=== PATIENT | female | born 1970 | race American Indian/Alaskan Native ===

== ENCOUNTER 2016-11-08 17:40 | Emergency (ER) | payer SELFPAY ==
--- NOTE | 2016-11-08 18:21 | Emergency Department Report ---
Chief Complaint: Headache Stated Complaint: HEADACHE Time Seen by Provider: 11/08/16 18:20 - HPI History of Present Illness: 45 y/o female complain of headache x 3 day s.pt state has not taken htn medication in a year.denies any chest pain or blurry vision.denies any prior treatment. - ROS Review of Systems: per HPI - Exam Vital Signs: Vital Signs 11/08/16 17:50 Temperature 98.2 F Pulse Rate 95 H Respiratory 18 Rate Blood Pressure 192/116 O2 Sat by Pulse 100 Oximetry Physical Exam: GENERAL: The patient is well-developed and well-nourished. Patient is in NAD. HENT: Normocephalic. Atraumatic. Patient has moist mucous membranes. Throat: No erythema, swelling or exudates. Ears:Tympanic membranes pearly kaiser ,intact , and free of exudate and erythema . EYES: Extraocular motions are intact, PERRL NECK: Supple. No meningitic signs are noted. There is no adenopathy noted. CHEST/LUNGS: Clear to auscultation bilaterally. No wheezing, rales or rhonchi noted. There is no respiratory distress noted. HEART/CARDIOVASCULAR: Regular rate and rhythm. Normal S1 S2. No murmurs, rubs , clicks, or gallops. ABDOMEN: Abdomen is soft, nontender.. Bowel sounds normoactive. There is no abdominal distention. Negative rebound tenderness. : Deferred. SKIN: There is no rash. There is no edema. There is no diaphoresis.Normal skin turgor NEURO: The patient is A&Ox3. The patient has no focal neurologic deficits. MUSCULOSKELETAL: There is no tenderness or deformity. There is no limitation range of motion. posture erect.Spine aligned,no deformities. PSYCH: Pt has appropriate mood and affect. MSE screening note: Focused history and physical exam performed. Due to findings the following was ordered: ED Disposition for MSE Condition: Stable
[2016-11-08 19:19] LABS: Hematocrit 30.1 % (30.3-42.9); Hemoglobin 9.2 gm/dl (10.1-14.3); Mean Corpuscular HGB Conc 31 % (30-34); Mean Corpuscular Volume 64 fl (79-97); Platelet Count 434 K/mm3 (140-440); Red Blood Count 4.68 M/mm3 (3.65-5.03); Red Cell Distribution Width 19.2 % (13.2-15.2); White Blood Count 7.8 K/mm3 (4.5-11.0)
[2016-11-08 19:20] LABS: Basophils % (Auto) 0.6 % (0.0-1.8); Mean Corpuscular Hemoglobin 20 pg (28-32)
[2016-11-08 19:21] LABS: Eosinophils % (Auto) 2.9 % (0.0-4.3)
[2016-11-08 19:23] LABS: INR 1.06 (0.87-1.13)
[2016-11-08 19:24] LABS: Partial Thromboplastin Time 27.4 Sec. (24.2-36.6)
[2016-11-08 19:32] LABS: Anion Gap 18 mmol/L; Blood Urea Nitrogen 12 mg/dL (7-17); Calcium 8.6 mg/dL (8.4-10.2); Carbon Dioxide 22 mmol/L (22-30); Chloride 101.5 mmol/L (98-107); Glucose 104 mg/dL (65-100); Potassium 4.1 mmol/L (3.6-5.0); Sodium 137 mmol/L (137-145)
[2016-11-08 20:33] LABS: Bilirubin,Urine NEG (Negative); Blood,Urine NEG (Negative); Ketones,Urine NEG (Negative); Leukocyte Esterase,Urine NEG (Negative); Nitrite,Urine NEG (Negative); Protein,Urine <15 mg/dL mg/dL (Negative); Urobilinogen,Urine < 2.0 mg/dL (<2.0); WBC,Urine < 1.0 /HPF (0.0-6.0)
[2016-11-09] MEDS ORDERED: CATAPRES PO ONE (02:33)
[2016-11-09] MEDS ORDERED: TENIVAC IM ONE (03:00)
--- NOTE | 2016-11-09 04:20 | Emergency Department Report ---
ED Headache HPI - General Chief Complaint: Headache Stated Complaint: HEADACHE Time Seen by Provider: 11/09/16 02:12 Source: patient Exam Limitations: no limitations - History of Present Illness Initial Comments: 45 yo Female with a past medical history hypertension presents complaining of intermittent headache for the past 3 days. Patient states she is under a lot of stress. Upon arrival she was noted to have elevated blood pressure. Patient has been noncompliant with her blood pressure medication for approximately one year. Her headache was initially frontal, rated 8/10 intensity without any relieving factors. Patient also complains of upper back and neck pain intermittently as well. She is pain-free at this time. No reports of nausea, vomiting, chest pain, shortness of breath, focal weakness or numbness. Patient also requesting a tetanus shot since she was bitten to 3 days ago by a friend's dog to her left leg below the knee. Animal shots were up to date Allergies/Adverse Reactions: Allergies ibuprofen Adverse Reaction (Verified 11/08/16 17:56) "FATIGUE / TIRED" Home Medications: Ambulatory Orders Lisinopril/Hydrochlorothiazide [Zestoretic 10-12.5 mg] 1 tab PO QDAY #30 tablet 11/09/16 traMADol [Ultram 50 MG tab] 50 mg PO Q6HR PRN #20 tablet 11/09/16 ED Review of Systems ROS: Stated complaint: HEADACHE Other details as noted in HPI Comment: All other systems reviewed and negative Other: Constitutional: No fevers chills or weight loss Eyes: No eye pain visual changes or discharge ENT: No ear pain or throat pain Neck: as per hpi Respiratory: Denies cough wheezing shortness of breath Cardiovascular: Denies chest pain, palpitations, syncopesed thirst GI: Denies abdominal pain, nausea, vomiting, diarrhea, constipation, melena hematochezia : Denies dysuria, urinary frequency, or urgency Musculoskeletal:as per hpi Skin: Denies rash, lesions, erythema Neurologic: Denies headache, numbness, weakness Psychiatric: Denies suicidal ideation, hallucinations Hematological/lymphatic: Denies easy bruising, lymphadenopathy ED Past Medical Hx - Past Medical History Hx Hypertension: Yes - Surgical History Additional Surgical History: - Social History Smoking Status: Never Smoker Substance Use Type: None - Medications Home Medications: Home Medications Medication Instructions Recorded Confirmed Last Taken Type Lisinopril/Hydrochlorothiazide 1 tab PO QDAY #30 tablet 11/09/16 Unknown Rx [Zestoretic 10-12.5 mg] traMADol [Ultram 50 MG tab] 50 mg PO Q6HR PRN #20 tablet 11/09/16 Unknown Rx ED Physical Exam - General Limitations: No Limitations - Other Other exam information: General: No limitations, patient is alert in no acute distress Head exam: Atraumatic, normocephalic Eyes exam: Normal appearance, pupils equal reactive to light, extraocular movements intact ENT: Moist mucous membrane, normal oropharynx Neck exam: Normal inspection, full range of motion, no meningismus nontender Respiratory exam: Clear to auscultation bilateral, no wheezes, rales, crackles Cardiovascular: Normal rate and rhythm, normal heart sounds Abdomen: Soft, nondistended, and nontender, with normal bowel sounds, no rebound, or guarding Extremity: Full range of motion normal inspection no deformity, mild ecchymosis to leg below the knee and area of dog bite. No bite wounds or skin puncture noted Back: Normal Inspection, full range of motion, no tenderness Neurologic: Alert, oriented x3, cranial nerves intact, no motor or sensory deficit Psychiatric: normal affect, normal mood Skin: Warm, dry, intact ED Course Vital Signs 11/08/16 11/09/16 11/09/16 17:50 00:17 02:05 Temperature 98.2 F 98.3 F Pulse Rate 95 H 83 Respiratory 18 20 Rate Blood Pressure 192/116 Blood Pressure 182/107 [Right] O2 Sat by Pulse 100 99 100 Oximetry 11/09/16 11/09/16 11/09/16 02:13 02:54 03:00 Temperature 97.7 F Pulse Rate 79 77 Respiratory 16 Rate Blood Pressure 173/102 171/108 Blood Pressure 184/115 [Right] O2 Sat by Pulse 100 98 Oximetry 11/09/16 03:19 Temperature Pulse Rate Respiratory 16 Rate Blood Pressure Blood Pressure [Right] O2 Sat by Pulse 100 Oximetry - Reevaluation(s) Reevaluation #1: 11/09/16 04:19 Patient was given clonidine 0.1 mg for blood pressure. No pain medicine given since no pain reported. Tetanus was given per patient request and per history of recent dog bite Reevaluation #2: 11/09/16 05:06 BP currently 142/53. Patient remains pain-free. Will be discharged ED Medical Decision Making - Lab Data Result diagrams: 11/08/16 18:36 11/08/16 18:36 Lab Results 11/08/16 11/08/16 11/08/16 Range/Units 18:36 18:36 18:36 WBC 7.8 (4.5-11.0) K/mm3 RBC 4.68 (3.65-5.03) M/mm3 Hgb 9.2 L (10.1-14.3) gm/dl Hct 30.1 L (30.3-42.9) % MCV 64 L (79-97) fl MCH 20 L (28-32) pg MCHC 31 (30-34) % RDW 19.2 H (13.2-15.2) % Plt Count 434 (140-440) K/mm3 Lymph % (Auto) 41.7 H (13.4-35.0) % Carlisle % (Auto) 5.6 (0.0-7.3) % Eos % (Auto) 2.9 (0.0-4.3) % Baso % (Auto) 0.6 (0.0-1.8) % Lymph # 3.2 (1.2-5.4) K/mm3 Carlisle # 0.4 (0.0-0.8) K/mm3 Eos # 0.2 (0.0-0.4) K/mm3 Baso # 0.0 (0.0-0.1) K/mm3 Seg Neutrophils % 49.2 (40.0-70.0) % Seg Neutrophils # 3.8 (1.8-7.7) K/mm3 PT 13.7 (12.2-14.9) Sec. INR 1.06 (0.87-1.13) APTT 27.4 (24.2-36.6) Sec. Sodium 137 (137-145) mmol/L Potassium 4.1 (3.6-5.0) mmol/L Chloride 101.5 (98-107) mmol/L Carbon Dioxide 22 (22-30) mmol/L Anion Gap 18 mmol/L BUN 12 (7-17) mg/dL Creatinine 0.6 L (0.7-1.2) mg/dL Estimated GFR > 60 ml/min BUN/Creatinine Ratio 20.00 % Glucose 104 H (65-100) mg/dL Calcium 8.6 (8.4-10.2) mg/dL HCG, Quant (0-4) mIU/mL Urine Color (Yellow) Urine Turbidity (Clear) Urine pH (5.0-7.0) Ur Specific Cle[place] (1.003-1.030) Urine Protein (Negative) mg/dL Urine Glucose (UA) (Negative) mg/dL Urine Ketones (Negative) mg/dL Urine Blood (Negative) Urine Nitrite (Negative) Urine Bilirubin (Negative) Urine Urobilinogen (<2.0) mg/dL Ur Leukocyte Esterase (Negative) Urine WBC (Auto) (0.0-6.0) /HPF Urine RBC (Auto) (0.0-6.0) /HPF U Epithel Cells (Auto) (0-13.0) /HPF 11/08/16 11/08/16 Range/Units 18:36 20:10 WBC (4.5-11.0) K/mm3 RBC (3.65-5.03) M/mm3 Hgb (10.1-14.3) gm/dl Hct (30.3-42.9) % MCV (79-97) fl MCH (28-32) pg MCHC (30-34) % RDW (13.2-15.2) % Plt Count (140-440) K/mm3 Lymph % (Auto) (13.4-35.0) % Carlisle % (Auto) (0.0-7.3) % Eos % (Auto) (0.0-4.3) % Baso % (Auto) (0.0-1.8) % Lymph # (1.2-5.4) K/mm3 Carlisle # (0.0-0.8) K/mm3 Eos # (0.0-0.4) K/mm3 Baso # (0.0-0.1) K/mm3 Seg Neutrophils % (40.0-70.0) % Seg Neutrophils # (1.8-7.7) K/mm3 PT (12.2-14.9) Sec. INR (0.87-1.13) APTT (24.2-36.6) Sec. Sodium (137-145) mmol/L Potassium (3.6-5.0) mmol/L Chloride (98-107) mmol/L Carbon Dioxide (22-30) mmol/L Anion Gap mmol/L BUN (7-17) mg/dL Creatinine (0.7-1.2) mg/dL Estimated GFR ml/min BUN/Creatinine Ratio % Glucose (65-100) mg/dL Calcium (8.4-10.2) mg/dL HCG, Quant < 2 (0-4) mIU/mL Urine Color Straw (Yellow) Urine Turbidity Clear (Clear) Urine pH 6.0 (5.0-7.0) Ur Specific [place] 1.008 (1.003-1.030) Urine Protein <15 mg/dl (Negative) mg/dL Urine Glucose (UA) Neg (Negative) mg/dL Urine Ketones Neg (Negative) mg/dL Urine Blood Neg (Negative) Urine Nitrite Neg (Negative) Urine Bilirubin Neg (Negative) Urine Urobilinogen < 2.0 (<2.0) mg/dL Ur Leukocyte Esterase Neg (Negative) Urine WBC (Auto) < 1.0 (0.0-6.0) /HPF Urine RBC (Auto) 1.0 (0.0-6.0) /HPF U Epithel Cells (Auto) 1.0 (0-13.0) /HPF - Medical Decision Making Labs are unremarkable. No signs of hypertensive emergency. CT not performed since pain-free at this time. Blood pressure improved with clonidine. Patient is sent home with a refill her last noted BP medication. Outpatient follow-up will be encouraged. - Differential Diagnosis htn headache, stress headache, tension headache, musculoskeletal pain Critical Care Time: No Critical care attestation.: If time is entered above; I have spent that time in minutes in the direct care of this critically ill patient, excluding procedure time. ED Disposition Clinical Impression: Noncompliance with medication regimen, Skin abrasion Headache Qualifiers: Headache type: unspecified Headache chronicity pattern: acute headache Intractability: not intractable Qualified Code(s): R51 - Headache HTN (hypertension) Qualifiers: Hypertension type: essential hypertension Qualified Code(s): I10 - Essential ( primary) hypertension Disposition: DISCHARGED TO HOME OR SELFCARE Is pt being admited?: No Does the pt Need Aspirin: No Condition: Stable Instructions: Hypertension (ED), Acute Headache (ED) Additional Instructions: Follow with the primary care doctor or clinic provided. Medication as prescribed. Return if symptoms worsen. Prescriptions: Lisinopril/Hydrochlorothiazide [Zestoretic 10-12.5 mg] 1 tab PO QDAY #30 tablet traMADol [Ultram 50 MG tab] 50 mg PO Q6HR PRN #20 tablet PRN Reason: Pain Referrals: [facility] [Provider Group] - 3-5 Days JIM JOHN MD [Staff Physician] - 3-5 Days Time of Disposition: 05:07
[2016-11-09 05:24] VITALS: BP 135/89
== END 2016-11-09 05:24 | disposition home or self-care (01) ==
LOC: ED 17:40
DX: S80.812A Abrasion, left lower leg, initial encounter (principal); R51 Headache; I10 Essential (primary) hypertension; Z91.14 Patient's other noncompliance with medication regimen; Z88.6 Allergy status to analgesic agent; W54.0XXA Bitten by dog, initial encounter; Y93.9 Activity, unspecified; Y99.9 Unspecified external cause status; Y92.89 Other specified places as the place of occurrence of the external cause
CPT/HCPCS: 36415; 80048; 81001; 84702; 85025; 85610; 85730; 90471; 90714

== ENCOUNTER 2017-08-27 21:35 | Emergency (ER) | payer BC ==
--- NOTE | 2017-08-28 00:43 | Cat Scan Report ---
FINAL REPORT PROCEDURE: CT HEAD/BRAIN WO CON TECHNIQUE: Computerized tomography of the head was performed without contrast material. HISTORY: headache COMPARISON: No prior studies are available for comparison. FINDINGS: Brain: Brain density appears normal. No evidence of intracranial hemorrhage. No parenchymal hemorrhage, mass lesions or mass effect are seen. No abnormal extraxial fluid collects or masses are seen. Ventricles: Ventricles are normal size and are midline. Bone Windows: No evidence of skull fracture. Paranasal sinuses: Patchy mucosal disease is seen in a few of the ethmoid air cells. Visualized portions of the paranasal sinuses otherwise appear clear. Mastoid air cells: Visualized portions appear clear. IMPRESSION: Negative unenhanced CT scan of the brain. No acute intracranial abnormalities are identified. Mild paranasal sinus disease as described.
[2017-08-28 03:46] VITALS: BP 152/95
--- NOTE | 2017-08-28 06:15 | Emergency Department Report ---
ED Headache HPI - General Chief Complaint: Headache Stated Complaint: HEADACHE Time Seen by Provider: 08/28/17 03:54 Source: patient, family - History of Present Illness Initial Comments: Patient here reports throbbing headache to the front of her head. Patient states that she has no history of migraine headaches. She says she has a history of high blood pressure and stated that she's been under a lot of stress due to family issues and her blood pressure has been high lately. Her blood pressure today was 161/85. She denies any visual disturbances, shortness of breath or chest pain. Denies any dizziness. Pain is 8 out of 10 and throbbing and she said she uses [id number] medication and is not helping. Denies any difficulty speaking, walk-in. Denies any nausea vomiting or fever or chills. Timing/Duration: 1 week, episodic, waxing and waning Quality: severe, achy, throbbing Head Injury Location: frontal Recent Head Trauma: no recent headache/trauma, occasional headaches Modifying Factors: improves with: rest Associated Symptoms: nasal drainage. denies: confusion, fatigue, facial pain, fever/chills, flushing, loss of consciousness, nausea/vomiting, nasal congestion , numbness in legs/feet, rash, seizures, sinus infection, stiff neck, vision changes, weakness Allergies/Adverse Reactions: Allergies ibuprofen Adverse Reaction (Verified 11/08/16 17:56) "FATIGUE / TIRED" Home Medications: Ambulatory Orders Lisinopril/Hydrochlorothiazide [Zestoretic 10-12.5 mg] 1 tab PO QDAY #30 tablet 11/09/16 traMADol [Ultram 50 MG tab] 50 mg PO Q6HR PRN #20 tablet 11/09/16 Acetaminophen/Codeine [Tylenol /Codeine # 3 tab] 1 tab PO Q8H PRN 4 Days #12 tablet 08/28/17 Amoxicillin/K Clav Tab [Augmentin 875 mg] 1 tab PO Q12HR 10 Days #20 tab Cetirizine HCl [ZyrTEC] 10 mg PO QAM 14 Days #14 capsule 08/28/17 Fluticasone [Flonase] 1 spray NS QDAY 14 Days #1 bottle 08/28/17 ED Review of Systems ROS: Stated complaint: HEADACHE Other details as noted in HPI Comment: All other systems reviewed and negative Constitutional: no symptoms reported Eyes: denies: eye pain, eye discharge, vision change ENT: congestion (runny nose). denies: ear pain, throat pain Respiratory: no symptoms reported Cardiovascular: denies: chest pain, palpitations, dyspnea on exertion, edema, syncope, paroxysmal nocturnal dyspnea Gastrointestinal: denies: abdominal pain, nausea, vomiting, diarrhea, constipation, hematemesis, melena, hematochezia Musculoskeletal: denies: back pain, joint swelling, arthralgia, myalgia Skin: denies: rash Neurological: headache. denies: weakness, numbness, paresthesias, confusion, abnormal gait, vertigo ED Past Medical Hx - Past Medical History Previous Medical History?: Yes Hx Hypertension: Yes - Surgical History Past Surgical History?: Yes Additional Surgical History: - Family History Family history: hypertension - Social History Smoking Status: Never Smoker Substance Use Type: None - Medications Home Medications: Home Medications Medication Instructions Recorded Confirmed Last Taken Type Lisinopril/Hydrochlorothiazide 1 tab PO QDAY #30 tablet 11/09/16 Unknown Rx [Zestoretic 10-12.5 mg] traMADol [Ultram 50 MG tab] 50 mg PO Q6HR PRN #20 tablet 11/09/16 Unknown Rx Acetaminophen/Codeine [Tylenol 1 tab PO Q8H PRN 4 Days #12 tablet 08/28/17 Unknown Rx /Codeine # 3 tab] Amoxicillin/K Clav Tab [Augmentin 1 tab PO Q12HR 10 Days #20 tab 08/28/17 Unknown Rx 875 mg] Cetirizine HCl [ZyrTEC] 10 mg PO QAM 14 Days #14 capsule 08/28/17 Unknown Rx Fluticasone [Flonase] 1 spray NS QDAY 14 Days #1 bottle 08/28/17 Unknown Rx ED Physical Exam - General Limitations: No Limitations General appearance: alert, in no apparent distress - Head Head exam: Present: atraumatic, normocephalic, normal inspection - Expanded Head Exam Expanded Head exam: Absent: laceration, abrasion, contusion, hematoma, racoon eyes, morley's sign, general tenderness, tenderness of temporal artery, CSF rhinorrhea , CSF otorrhea - Eye Eye exam: Present: normal appearance, PERRL, EOMI. Absent: nystagmus, periorbital swelling, periorbital tenderness Pupils: Present: normal accommodation - ENT ENT exam: Present: normal orophraynx, mucous membranes moist, normal external ear exam, other (bilateral frontal sinus tenderness to palpate.). Absent: TM's normal bilaterally (bilateral TM congested with clear nasal drainage) - Neck Neck exam: Present: normal inspection, full ROM, other (no C-spine tenderness). Absent: tenderness, meningismus, lymphadenopathy, thyromegaly - Respiratory Respiratory exam: Present: normal lung sounds bilaterally. Absent: respiratory distress, wheezes, rales, rhonchi, stridor, chest wall tenderness, accessory muscle use - Cardiovascular Cardiovascular Exam: Present: regular rate, normal rhythm, normal heart sounds. Absent: systolic murmur, diastolic murmur - GI/Abdominal GI/Abdominal exam: Present: soft, normal bowel sounds. Absent: distended, tenderness, guarding, rebound, rigid, organomegaly, mass, bruit, pulsatile mass - Extremities Exam Extremities exam: Present: normal inspection, full ROM, normal capillary refill , other (no clubbing cyanosis or edema to extremities. No neurovascular compromise. +2 pulses to all extremities). Absent: tenderness, pedal edema, joint swelling, calf tenderness - Back Exam Back exam: Present: normal inspection, full ROM. Absent: tenderness, CVA tenderness (R), CVA tenderness (L), muscle spasm, paraspinal tenderness, vertebral tenderness, rash noted - Neurological Exam Neurological exam: Present: alert, oriented X3, normal gait, reflexes normal. Absent: motor sensory deficit - Expanded Neurological Exam Expanded Neurological exam: Absent: innattentive, memory loss-remote event, memory loss- recent event, ataxia, receptive aphasia, expressive aphasia, total aphasia, tremor, protecting the airway Patient oriented to: Present: person, place, time Speech: Present: fluid speech Cranial nerves: EOM's Intact: Normal, Gag Reflex: Normal, Tongue Deviation: Normal, Nystagmus: Normal, Facial Sensation: Normal Upper motor neuron: Pronator Drift: Normal, Sensory Extinction: Normal Sensory exam: Upper Extremity Light Touch: Normal, Upper Extremity Pin Prick: Normal, Upper Extremity Temperature: Normal, UE 2 Point Discrimination: Normal, Lower Extremity Light Touch: Normal, Lower Extremity Pin Prick: Normal, Lower Extremity Temperature: Normal, LE 2 Point Discrimination: Normal DTR: bicep (R): 2+, bicep (L): 2+, tricep (R): 2+, tricep (L): 2+, knee (R): 2+ , knee (L): 2+, ankle (R): 2+, ankle (L): 2+ Best Eye Response (Jina): (4) open spontaneously Best Motor Response (Jina): (6) obeys commands Best Verbal Response (Jina): (5) oriented Jina Total: 15 - Psychiatric Psychiatric exam: Present: normal affect, normal mood - Skin Skin exam: Present: warm, dry, intact, normal color. Absent: rash ED Course Vital Signs 08/27/17 08/28/17 23:35 03:45 Temperature 98.5 F Pulse Rate 85 83 Respiratory 18 Rate Blood Pressure 161/85 Blood Pressure 152/95 [Left] O2 Sat by Pulse 100 100 Oximetry - Reevaluation(s) Reevaluation #1: 08/28/17 07:08 CT scan of the head revealed no acute intracranial hemorrhage. Ventricles are normal in size and are midline. No evidence of skull fracture. Negative unenhanced CT scan of the brain. No acute intracranial abnormal are identified. Patient with mild paranasal sinusitis. Patient does have nasal congestion, tenderness to palpate her friend's a frontal sinuses with nasal mucosa congested and erythema. ED Medical Decision Making - Radiology Data Radiology results: report reviewed CT scan of the head without contrast shows negative unenhanced CT scan of the brain. No acute intracranial of the maladies. mild paranasal sinusitis sinusitis. - Medical Decision Making ED course: Sent here report in headache that started been ongoing for the last week. She said it comes and goes and she's been taken [id number] medication which is not helping. Patient says she does not have headache and has never been diagnosed with migraine. She says she has a primary care doctor and has high blood pressure which she sees her primary care doctor for. Patient says she's been under a lot of stress lately due to family issues. Physical findings for nasal mucosal congestion with erythema, frontal sinuses tender to palpate and CT scan of the head shows patient with no acute intracranial hemorrhage that she does have mild nasal sinusitis. This result with the patient along with treatment plan and she voiced understanding. Patient given Lynndyl 10/325 mg 1 tablet by mouth in emergency room with positive relief of pain. Patient discharged home to follow up with her primary care physician for sinusitis and I told her however headache continues after antibiotic is completed she needs to see her primary care physician. Keep a log of her blood pressure and bring to her next visit with her. Patient is stable blood pressures mildly elevated. Discharged home a prescription for Zyrtec, Flonase, Augmentin which she got her first dose in emergency room and Tylenol 3. Critical care attestation.: If time is entered above; I have spent that time in minutes in the direct care of this critically ill patient, excluding procedure time. ED Disposition Clinical Impression: Elevated blood pressure reading with diagnosis of hypertension Nonintractable episodic headache Qualifiers: Headache type: unspecified Qualified Code(s): R51 - Headache Acute sinusitis Qualifiers: Sinusitis location: unspecified location Recurrence: not specified as recurrent Qualified Code(s): J01.90 - Acute sinusitis, unspecified Disposition: TO HOME OR SELFCARE Is pt being admited?: No Does the pt Need Aspirin: No Condition: Stable Instructions: Hypertension (ED), Sinusitis (ED), Acute Headache (ED) Additional Instructions: Please increase her fluid intake Flush nostrils with saline nasal spray take antibiotic as prescribed F/U with primary care physician as instructed Please keep a log of your blood pressure and take your primary care doctor with you. Prescriptions: Acetaminophen/Codeine [Tylenol /Codeine # 3 tab] 1 tab PO Q8H PRN 4 Days #12 tablet PRN Reason: Headache Amoxicillin/K Clav Tab [Augmentin 875 mg] 1 tab PO Q12HR 10 Days #20 tab Cetirizine HCl [ZyrTEC] 10 mg PO QAM 14 Days #14 capsule Fluticasone [Flonase] 1 spray NS QDAY 14 Days #1 bottle Referrals: PRIMARY CARE,MD [Primary Care Provider] - 2-3 Days Forms: Work/School Release Form(ED), Accompanied Note
[2017-08-28] MEDS ORDERED: AUGMENTIN 875 MG ONE (06:29)
[2017-08-28] MEDS ORDERED: NORCO 10/325 ONE (06:29)
[2017-08-28] MEDS ORDERED: NORCO 10/325 PO ONE (07:04)
[2017-08-28] MEDS ORDERED: AUGMENTIN 875 MG PO ONE (07:04)
== END 2017-08-28 07:33 | disposition home or self-care (01) ==
LOC: ED 21:35
DX: J01.10 Acute frontal sinusitis, unspecified (principal); R51 Headache; I10 Essential (primary) hypertension; Z88.8 Allergy status to other drugs, medicaments and biological substances
CPT/HCPCS: 70450; 99283

== ENCOUNTER 2019-07-11 09:31 | Emergency (ER) | payer SELFPAY ==
[2019-07-11] MEDS ORDERED: KETOROLAC 30 MG/1 ML INJ IV ONE (11:40)
--- NOTE | 2019-07-11 11:44 | Emergency Department Report ---
ED General Adult HPI - General Chief complaint: Headache Stated complaint: NECK PAIN Time Seen by Provider: 07/11/19 10:50 Source: patient Mode of arrival: Ambulatory Limitations: No Limitations - History of Present Illness Initial comments: 48 yo AA F pt with hx of HTN complains of left sided neck pain x 1.5 weeks. Also complains of intermittent headaches when her blood pressure is elevated, however denies any current headache, vision changes, or dizziness. Reports a single episode of dizziness last night when getting up from a seated position that lasted a few seconds. She denies any neck injuries, fever, fatigue, body aches, numbness/tingling, weakness, or back pain. Also denies SOB or chest pain. She reports the headaches ahve improved with resuming her BP meds-seen here in ED 07/05/19 for refill. Complaint: Left sided neck pain -: Sudden Location: neck Radiation: non-radiation Severity scale (0 -10): 5 Quality: aching, constant Consistency: constant Worsens with: movement Associated Symptoms: headaches Treatments Prior to Arrival: none - Related Data Previous Rx's Medication Instructions Recorded Last Taken Type Lisinopril/Hydrochlorothiazide 1 each PO DAILY #30 tablet 07/05/19 Unknown Rx [Zestoretic 20-12.5 mg] Ibuprofen [Motrin 800 MG tab] 800 mg PO Q8HR PRN 7 Days #21 07/11/19 Unknown Rx tablet methOCARBAMOL [Robaxin TAB] 1,500 mg PO TID PRN 7 Days #30 07/11/19 Unknown Rx tablet Allergies Allergy/AdvReac Type Severity Reaction Status Date / Time ibuprofen Allergy Itching Verified 07/11/19 12:20 ED Review of Systems ROS: Stated complaint: NECK PAIN Other details as noted in HPI Constitutional: denies: chills, fever Eyes: denies: eye pain, eye discharge, vision change Respiratory: denies: cough, shortness of breath, wheezing Cardiovascular: denies: chest pain, palpitations Endocrine: no symptoms reported Gastrointestinal: denies: abdominal pain, nausea, diarrhea Genitourinary: denies: urgency, dysuria, discharge Musculoskeletal: as per HPI. denies: back pain, joint swelling, myalgia Neurological: denies: headache, weakness, paresthesias ED Past Medical Hx - Past Medical History Previous Medical History?: Yes Hx Hypertension: Yes - Surgical History Past Surgical History?: Yes Additional Surgical History: - Social History Smoking Status: Never Smoker Substance Use Type: None - Medications Home Medications: Home Medications Medication Instructions Recorded Confirmed Last Taken Type Lisinopril/Hydrochlorothiazide 1 each PO DAILY #30 tablet 07/05/19 07/11/19 Unknown Rx [Zestoretic 20-12.5 mg] Ibuprofen [Motrin 800 MG tab] 800 mg PO Q8HR PRN 7 Days #21 07/11/19 Unknown Rx tablet methOCARBAMOL [Robaxin TAB] 1,500 mg PO TID PRN 7 Days #30 07/11/19 Unknown Rx tablet ED Physical Exam - General Limitations: No Limitations General appearance: alert, in no apparent distress - Head Head exam: Present: atraumatic, normocephalic - Eye Eye exam: Present: normal appearance, PERRL, EOMI - ENT ENT exam: Present: normal exam, mucous membranes moist - Neck Neck exam: Present: tenderness (spinal tenderness with some tenderness to palp ation of left trapezius muscle ), full ROM. Absent: meningismus, lymphadenopathy - Respiratory Respiratory exam: Present: normal lung sounds bilaterally. Absent: respiratory distress - Cardiovascular Cardiovascular Exam: Present: regular rate, normal rhythm. Absent: bradycardia, tachycardia, irregular rhythm, systolic murmur, diastolic murmur, rubs, gallop - GI/Abdominal GI/Abdominal exam: Present: soft. Absent: tenderness - Neurological Exam Neurological exam: Present: alert, oriented X3. Absent: motor sensory deficit - Psychiatric Psychiatric exam: Present: normal affect, normal mood - Skin Skin exam: Present: warm, dry, intact, normal color. Absent: rash ED Course Vital Signs 07/11/19 07/11/19 09:46 11:18 Temperature 98.2 F 98 F Pulse Rate 89 82 Respiratory 18 16 Rate Blood Pressure 155/133 Blood Pressure 156/94 [Left] O2 Sat by Pulse 98 100 Oximetry ED Medical Decision Making - Lab Data Result diagrams: 07/11/19 11:52 07/11/19 11:52 - Medical Decision Making Patient here for left-sided neck pain 1 week. Patient had also complained of intermittent headaches that occur when her pressure is elevated and a single episode of dizziness occurring last night after standing for a few seconds. Patient denies any current dizziness, headaches, chest pain, shortness of breat h. Labs and EKG are within normal limits. Patient states neck pain has resolved with Toradol medication given here in the ED. Symptoms are likely musculoskeletal in nature. Patient has follow-up Critical care attestation.: If time is entered above; I have spent that time in minutes in the direct care of this critically ill patient, excluding procedure time. ED Disposition Clinical Impression: Neck pain Disposition: - TO HOME OR SELFCARE Is pt being admited?: No Does the pt Need Aspirin: No Condition: Stable Instructions: Muscle Strain (ED) Prescriptions: Ibuprofen [Motrin 800 MG tab] 800 mg PO Q8HR PRN 7 Days #21 tablet PRN Reason: Pain, Moderate (4-6) methOCARBAMOL [Robaxin TAB] 1,500 mg PO TID PRN 7 Days #30 tablet PRN Reason: Muscle Spasm Referrals: [facility] [Provider Group] - 3-5 Days
[2019-07-11 12:24] LABS: Basophils # (Auto) 0.1 K/mm3 (0.0-0.1); Basophils % (Auto) 1.3 % (0.0-1.8); Eosinophils # (Auto) 0.2 K/mm3 (0.0-0.4); Eosinophils % (Auto) 3.5 % (0.0-4.3); Hematocrit 30.5 % (30.3-42.9); Hemoglobin 9.3 gm/dl (10.1-14.3); Lymphocytes # (Auto) 2.1 K/mm3 (1.2-5.4); Lymphocytes % (Auto) 42.6 % (13.4-35.0); Mean Corpuscular HGB Conc 30 % (30-34); Monocytes # (Auto) 0.4 K/mm3 (0.0-0.8); Monocytes % (Auto) 7.5 % (0.0-7.3); Platelet Count 374 K/mm3 (140-440); Red Blood Count 4.84 M/mm3 (3.65-5.03); Red Cell Distribution Width 19.2 % (13.2-15.2)
[2019-07-11 12:26] LABS: Mean Corpuscular Volume 63 fl (79-97)
[2019-07-11 12:33] LABS: BUN/Creatinine Ratio 22; Blood Urea Nitrogen 11 mg/dL (7-17); Calcium 9.2 mg/dL (8.4-10.2); Hemolysis Index 5
[2019-07-11 14:08] VITALS: BP 150/97
== END 2019-07-11 14:07 | disposition home or self-care (01) ==
LOC: ED 09:31
DX: M54.2 Cervicalgia (principal)
CPT/HCPCS: 36415; 80048; 84484; 85025; 93005; 93010; 96374; 99283; J1885

== ENCOUNTER 2022-04-27 11:21 | Emergency (ER) | payer SELFPAY ==
[2022-04-27 11:40] VITALS: BP 168/101
--- NOTE | 2022-04-27 11:58 | Emergency Department Report ---
Chief Complaint: Extremity Injury, Lower Stated Complaint: RIGHT KNEE AND FOOT PAIN Time Seen by Provider: 04/27/22 12:08 - HPI History of Present Illness: 51 YO COMES TO ER after having to wear a steel toe boot at work for a month. They then gave her a shoe which is still still toed but is not hurting her foot. But she comes in with a month history of foot and knee pain. There is no fall or trauma. No history of problems with these joints. - ROS Review of Systems: Right knee and ankle/foot pain - Exam Vital Signs: Vital Signs 04/27/22 11:37 Temperature 97.9 F Pulse Rate 97 H Respiratory 14 Rate Blood Pressure 168/101 O2 Sat by Pulse 100 Oximetry Physical Exam: Alert and oriented x4. Ambulatory. Neurovascularly intact. Peripheral vascularly intact. S1-S2 Lungs clear to auscultation Abdomen soft nontender MSE screening note: Focused history and physical exam performed. Due to findings the following was ordered: I have educated the patient that she has a nonmedical emergency. That this is a chronic issue related to her work shoe. I have encouraged her to take NSAIDs [id number] and to follow-up with orthopedics. Patient MSE from the ER with a nonmedical emergency. ED Disposition for MSE Clinical Impression: Knee pain Qualifiers: Chronicity: unspecified Foot pain Qualifiers: Laterality: unspecified laterality Qualified Code(s): M79.673 - Pain in unspecified foot Disposition: 07 LEFT WITHOUT BEING SEEN Is pt being admited?: No Does the pt Need Aspirin: No Condition: Stable Instructions: Acute Knee Pain, Adult Prescriptions: Ibuprofen [Motrin] 800 mg PO Q8HR PRN #30 tablet PRN Reason: Pain, Moderate (4-6) Referrals: MORA EMMANUEL MD [Staff Physician] - 3-5 Days Forms: Work/School Release Form(ED) Time of Disposition: 12:11
== END 2022-04-27 14:00 | disposition left against medical advice (07) ==
LOC: ED 11:21
DX: M25.561 Pain in right knee (principal); M79.671 Pain in right foot
CPT/HCPCS: 99282

== ENCOUNTER 2022-05-24 20:46 | Emergency (ER) | payer SELFPAY ==
[2022-05-24 20:57] VITALS: BP 159/92
--- NOTE | 2022-05-25 02:56 | XRay Report ---
Right shoulder 3 views INDICATION: Pain FINDINGS: Glenohumeral joint and AC joint show mild degenerative change. No acute fracture dislocatio n. Signer Name: Lacho Morris MD Signed: 05/25/2022 2:51 AM Workstation Name: [id number]
== END 2022-05-25 21:30 | disposition left against medical advice (07) ==
LOC: ED 20:46
DX: M25.511 Pain in right shoulder (principal); Z53.21 Procedure and treatment not carried out due to patient leaving prior to being seen by health care provider